=== PATIENT | male | born 1950 | race Hispanic/Latino ===

== ENCOUNTER 2023-10-24 13:20 | Emergency (ER) | payer OTHER, MEDICARE, SELFPAY ==
[2023-10-24 13:23] VITALS: BP 125/70
--- NOTE | 2023-10-24 13:24 | ED.PDOC.TRB ---
ED Provider Triage
-
Patient seen by provider in Triage?: Seen in Triage
A medical screening examination has been initiated by a qualified medical provider. Based on the assessment performed at this time, it has been determined that an emergent medical condition may exist and the patient has been informed that further
medical evaluation and possible additional diagnostic testing may be needed.
HPI: This is a medical evaluation conducted in person to initiate diagnostic evaluation and provide initial therapeutics. Please see further documentation by the treating clinician.
GENERAL: Alert ,tearful
EYE: No visual abnormalities.
NECK: Trachea midline
ENT: No visible abnormalities.
LUNGS: No acute respiratory distress
NEUROLOGICAL: Alert and oriented
SKIN: no visible lesions.
MUSCULOSKELETAL: Moving extremities normally
PSYCH: Normal and appropriate interaction.
73-year-old male presenting to the emergency department with concerns of flashes and floaters worsening over the past week or so unable to get in with his chili maker. Patient is going on a trip soon and when to get assessed for potential
retinal pathology. Funduscopic examination was performed in triage though was technically difficult with constricted pupil. No obvious acute abnormalities though more thorough examination will be required to fully assess for this.
[2023-10-24 14:14] VITALS: BP 113/68
[2023-10-24 14:16] VITALS: BMI 37.5
--- NOTE | 2023-10-24 15:26 | ED.GENMED ---
History of Present Illness
General
Chief Complaint: Eye Problems
Source: patient
Exam Limitations: none
Time Seen by Provider: 10/24/23 15:09
Nursing documentation reviewed up to this point in time: agreed with
History of Present Illness
History of Present Illness:
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 He is normally seen at the [facility] but was unable to be seen until November. He
has had floaters in both of his eyes for the past 3 to 4 years but recently, 4 to 5 days ago he has noticed that he has had long strings but he described are vertical that he can see out of both eyes. He reports this is not affecting his vision and
he has no visual deficit but his physician was concerned for his retina and sent him to the ER for evaluation. He denies any trauma denies any headaches.
Past History
Past History
ED Past Medical History: CAD, HTN, Hypercholesterolemia and Other (slepp apnea)
ED Past Surgical History: Cardiac (cath w/ stent)
Social History
Alcohol: Daily (wine with dinner and socially)
Personal:
Living: with family
Employment: Employed
Review of Systems
Review of Systems
Allergies reviewed?: Yes
All Other Systems: ROS reviewed and negative except as documented in HPI and ROS
Constitutional: Reports no symptoms
EENT: Reports other (pt has chronic 'little dot floaters' in b/l eye ; for past 4 d has had long ' string like' vertical lines that he can see in b/l eyes denies visual deficit)
Respiratory: Reports no symptoms
Cardiac: Reports no symptoms
ABD/GI: Reports no symptoms
Musculoskeletal: Reports no symptoms
Skin: Reports no symptoms
Neurological: Reports no symptoms; Denies dizzy or headache
Psychiatric: Reports no symptoms
Phy Exam
General Physical Exam
General Presentation: no apparent distress
General age: appears stated age
General Skin: warm and dry
General Habitus: normal
General Mental: alert
General Hydration: appears well hydrated
ENT Exam
ENT Exam: EOMI
Eye Exam
Eye Exam: PERRL, EOMI and conjunctiva normal
Able to obtain acuity?: Yes
Eye Exam General: PERRL: bilateral and EOM intact: bilateral
Pupil Exam: Bilateral: round and reactive
Cardiovascular Exam
Cardiovascular Exam: regular rate/rhythm, no murmur and normal peripheral pulses
Pulmonary Exam
Pulmonary Exam: lungs clear and no respiratory distress
Neurological Exam
Neurological Exam: alert and oriented x3
Musculoskeletal Exam
Musculoskeletal Exam: full ROM
Skin Exam
Skin Exam: normal color and warm/dry
Psychiatric Exam
Psychiatric Exam: normal mood/affect
Course
Orders/Labs/Results
Orders:
Orders
10/24/23 15:22
Visual Acuity- Treatment ONCE
Vital Signs
Initial and Last Documented VS:
Initial Vital Signs
Temp Pulse Resp BP Pulse Ox
98.4 F 61 18 125/70 97
10/24/23 13:23 10/24/23 13:23 10/24/23 13:23 10/24/23 13:23 10/24/23 13:23
Last Documented Vital Signs
Temp Pulse Resp BP Pulse Ox
98.0 F 61 18 113/68 98
10/24/23 14:14 10/24/23 14:14 10/24/23 14:14 10/24/23 14:14 10/24/23 14:14
MDM/Problems Addressed
Differential Diagnosis Includes:
not limited to: Retinal detachment ,vitreous detachment, floaters
MDM/Problems Addressed:
Patient is a 73-year-old male who presents here for evaluation. He has had floaters in both of his eyes for the past several years however for the past 4 to 5 days as noted he has seen what he describes as vertical string-like projections. He
reports his vision otherwise is fine and he has no blurry vision or visual deficit. He has no associated headache trauma. Blood thinners. I was able to contact our local set up mechanic heading machines. I did speak with ophthalmology Dr. Rand and office is
able to see patient today at 530. Patient drove himself here to the hospital feels comfortable driving and understands importance of following up at 5: 30 this evening.
*Pulse Oximetry
Patient hypoxic: no
*Critical Care Note
Total Time (30-74mins, 75-104mins- exclusive of procedures): Not Applicable
Patient Management
Discussion with other providers: Supervisor [employer] Covering (Dr Rand via tiger text )
ED Attending Note
-
Portions of this chart may have been created with voice recognition software.� Occasional wrong word or��sound alike� substitutions may have occurred due to the inherent limitations of voice recognition software.
Discharge Plan
Departure
Patient Disposition: Home (Routine Discharge)
Date of Disposition: 10/24/23
Time of Disposition: 16:12
Patient with high blood pressure during this ER visit?: No
Condition: Fair
Covid-19: Not Applicable
Discharge Problem:
Floaters
Prescriptions:
No Action
amlodipine 10 MG tablet
10 mg PO DAILY
gabapentin 300 MG capsule
600 mg PO HS
tramadol 100 MG capsule,ER biphase 24 hr 25-75
50 mg PO HS
Nitrogylcerin
0.4 mg SPRAY PRN PRN (Reason: angina)
Patient Comments:
patient states he last took 2-3 months ago
triamterene-hydrochlorothiazid 1 EACH tablet
1 tab PO DAILY Qty: 0 0RF
Rx Instructions:
hold sbp <130
losartan 50 MG tablet
50 mg PO HS
atorvastatin 10 MG tablet
10 mg PO HS
aspirin [Aspir-Low] 81 MG tablet,delayed release (DR/EC)
2 tab PO BID
Cialis
1 tab PO HS
Krill Oil
300 mg PO DAILY
pantoprazole 40 MG tablet,delayed release (DR/EC)
40 mg PO DAILY
cholecalciferol (vitamin D3) [Vitamin D3] 50 mcg (2,000 unit) Capsule
100 mcg PO DAILY
pantoprazole [Protonix] 40 mg tablet,delayed release (DR/EC)
40 mg PO DAILY 14 Days Qty: 14 0RF
Referrals:
Aroldo Cohen Jr., DO [Family Provider] -
Hal Franks MD [Active Community] -
Activity Restrictions/Additional Instructions:
Go directly to [facility] at the [facility]. Your appt is at 5 : 30 pm tonight!!!!
[address] [place] [address]
[phone]
return if any worsening of symptoms
Interventions
Interventions:
*Risk Screen - Suicide Last Done: 10/24/23 13:23
*General Assessment Last Done: 10/24/23 13:23
*Neglect/Abuse Screening Last Done: 10/24/23 13:23
*ED COVID-19 Vaccine History Last Done: 10/24/23 14:17
Discharge Date and Time
Print Language: [id number]
== END 2023-10-24 17:11 | disposition home or self-care (01) ==
LOC: EMR 13:20
PROVIDERS: EMERGENCY PHYSICIAN Emergency Medicine; FAMILY PHYSICIAN Family Medicine
DX: H43.393 Other vitreous opacities, bilateral (principal); I10 Essential (primary) hypertension; E78.00 Pure hypercholesterolemia, unspecified
CPT/HCPCS: 99282

== ENCOUNTER → 2024-06-19 10:25 | Outpatient (REF) | payer OTHER, MEDICARE, SELFPAY | LOC: DHSLP 10:25 | PROVIDERS: ATTENDING PHYSICIAN Internal Medicine Critical Care Medicine; FAMILY PHYSICIAN Family Medicine | DX: G47.33 Obstructive sleep apnea (adult) (pediatric) (principal) | CPT/HCPCS: 95806 ==